=== PATIENT | male | born 1965 | race Caucasian/White ===

== ENCOUNTER → 2017-11-28 | Outpatient (CLI) | payer MEDICARE, MEDICAID ==
[~2017-11-28] MED LIST: AMARYL4 MG PO; AMOXICILLIN875 MG PO; ANTIANXIETY PO; AURALGAN EAR DR14 ML OTIC; BAYER CHEWABLE81 MG PO; BIOFREEZE118 ML TP; CELEXA20 MG PO; CLARITIN10 M2 PO; CLARITIN10 MG PO; EFFEXOR PO; EFFEXOR75 MG PO; FELDENE20 MG PO; FENTANYL PA25 MCG/HR TRANSDERM; FENTANYL PA50 MCG/HR TRANSDERM; FLEXERIL PO; GLUCOTROL5 MG PO; HUMALOG100 UNIT/1 SUBQ; HYDROCODON-ACE1 EAC7 PO; HYDROCODON-ACE1 EAC8 PO; HYDROCODONE; JANUVIA25 MG PO; KEFLEX; LEVEMIR SUBQ; LIDODERM 5%1 PATCH TOP; LISINOPRIL20 MG PO; METFORMIN HCL500 MG PO; METFORMIN PO; MORPHINE PO; NEURONTIN 300300 M1 PO; NOVOLOG100 UNIT/1 SUBQ; NUCYNTA ER100 MG; NUCYNTA ER100 MG PO; NUCYNTA ER150 MG PO; NUCYNTA ER200 MG PO; NUCYNTA ER250 MG PO; NUCYNTA ER50 MG PO; NUCYNTA100 MG PO; NUCYNTA50 MG; NUCYNTA50 MG PO; PERCOCET 5-3251 EACH PO; PRINIVIL20 MG PO; REQUIP 0.25 M0.25 MG PO; ROBAXIN 750 MG750 M1 PO; SIMVASTATIN40 MG PO; SINGULAIR 10 MG10 M1 PO; TESSALON200 MG PO; TOPAMAX 25 MG T25 M1 PO; TOPAMAX50 MG PO; TOPICAL ANALGESIC; TOPICAL PAIN CREAM; TOUJEO SOL300 UNIT/1 SUBQ; ULTRAM 50MG TAB50 MG PO; VICODIN PO
== END ==
LOC: M.RAD 10:57
DX: S97.82XA Crushing injury of left foot, initial encounter (principal); E78.5 Hyperlipidemia, unspecified; I10 Essential (primary) hypertension; X58.XXXA Exposure to other specified factors, initial encounter; Y93.89 Activity, other specified; Y92.89 Other specified places as the place of occurrence of the external cause; Y99.8 Other external cause status

== ENCOUNTER 2018-01-05 06:17 | Emergency (ER) | payer MEDICARE, MEDICAID ==
[~2018-01-05] VITALS: Ht 165.1 cm; Wt 97.1 kg
[2018-01-05 06:26] VITALS: BP 146/79
[2018-01-05] MEDS ORDERED: PREDNISONE 20 M20 M1 PO (06:26)
[2018-01-05] MEDS ORDERED: VICTOZA0.6 MG/0.1 SUBQ (06:32)
[2018-01-05] MEDS ORDERED: [UNRECOGNIZED DRUG - OTHER] PO (06:34)
[2018-01-05] MEDS ORDERED: TRESIBA FL100 UNIT/1 SUBQ (06:36)
== END 2018-01-05 06:41 | disposition home or self-care (01) ==
LOC: M.ERS 06:17
DX: L29.9 Pruritus, unspecified (principal); I10 Essential (primary) hypertension; E78.5 Hyperlipidemia, unspecified; F31.9 Bipolar disorder, unspecified; F90.9 Attention-deficit hyperactivity disorder, unspecified type; G25.81 Restless legs syndrome; M17.12 Unilateral primary osteoarthritis, left knee

== ENCOUNTER → 2018-02-27 | Outpatient (CLI) | payer MEDICARE, MEDICAID ==
[~2018-02-27] MED LIST changes: +PREDNISONE 20 M20 M1 PO; +TRESIBA FL100 UNIT/1 SUBQ; +VICTOZA0.6 MG/0.1 SUBQ; +[UNRECOGNIZED DRUG - OTHER] PO
== END ==
LOC: M.ULTRA 09:37
DX: M71.22 Synovial cyst of popliteal space [Baker], left knee (principal); M79.604 Pain in right leg; Z68.41 Body mass index [BMI] 40.0-44.9, adult

== ENCOUNTER → 2018-12-03 | Outpatient (CLI) | payer MEDICARE ==
--- NOTE | 2018-12-03 17:36 | EXE ---
[place] [address] STRESS ECHOCARDIOGRAM Name: DARIENKATINA LICEA Room: [facility]#: [id number] Admission: 12/03/18 Attend Phys: Luis Man, Discharge: Date of : 61 Date of Service: 12/03/18 1735 Report #: [id number] THIS REPORT FOR: //name// APPROVED REPORT Study performed: 12/03/2018 15:07:54 Exam: Stress Echocardiogram Indication: Chest pain , Dyspnea , Increased Fatigue Patient Location: Out-Patient Stress Nurse: María Thomason RN Supervising Physician: Juan Jose Chaudhari MD Ht: 5 ft 5 in HR: 56 bpm BP: 118/70 mmHg Medical History Cardiac Risk Factors: FHX of CAD, DM, Hyperlipidemia, HTN, Tobacco History (Former) Procedure The patient underwent an Exercise Stress Test using the Crow Protocol. Blood pressure, heart rate, and EKG were monitored. An Echocardiogram was performed by medical technician in four stages in quad fashion. At peak stress, four selected images were obtained and placed side by side with resting images for comparison. Stress Test Details Stress Test: Exercise stress testing was performed using a Crow protocol. HR Resting HR: 56 bpm Max Heart Rate (APMHR): 165 bpm Max HR Achieved: 136 bpm Target HR (85% APMHR): 140 bpm % of APMHR: 82 Recovery HR: 74 bpm HR response to stress: Normal HR response to stress BP Resting BP: 118/70 mmHg Max BP: 182/104 mmHg Recovery BP: 161/92 mmHg BP response to stress: Normal blood pressure response to stress. ECG Resting ECG: [place] [address] STRESS ECHOCARDIOGRAM Name: KATINA LEDEZMA Room: [facility]#: [id number] Admission: 12/03/18 Attend Phys: Luis Man, Discharge: Date of : 61 Date of Service: 12/03/18 1735 Report #: [id number] Stress ECG: Sinus Tachycardia ST Change: NONE Arrhythmia: None Recovery ECG: Sinus Rhythm Recovery ST Change: NONE Recovery Arrhythmia: None Clinical Reason for Termination: Fatigue and Dyspnea Exercise duration: 7 min 16 sec Highest Stage Achieved: Stage 3: 3.4 mph at 14% grade. Exercise capacity: 7.37 METs The patient had no significant cardiac symptoms with standard Crow protocol exercise. Exercise tolerance was somewhat reduced. Patient did not achieve target heart rate and was only able to be 82% of maximum predicted heart rate. Exercise was terminated due to dyspnea and fatigue. Stress ECG Conclusion The baseline 12-lead EKG shows sinus rhythm without significant ST or T wave abnormality. EKGs obtained during and post exercise stress show sinus rhythm and sinus tachycardia with no significant ST or T wave changes when compared to baseline. There were no stress-induced arrhythmias. Pre-Stress Echo The resting Echocardiogram showed normal left ventricular contractility with an estimated Ejection Fraction of about 55-60%. Post-Stress Echo The stress Echocardiogram showed normal left ventricular contractility with an estimated Ejection Fraction of about 65-70%. Normal augmentation of wall motion in all segments on post stress images. Clinical No clinical or ECG evidence for ischemia. Conclusion Clinical Response: Non-ischemic Exercise Capacity: Below Average Stress ECG Response: Non-ischemic Stress Echo Images: Non-ischemic The left ventricle is normal in size and wall thickness in both the rest [place] [address] STRESS ECHOCARDIOGRAM Name: KATINA LEDEZMA Room: [facility]#: [id number] Admission: 12/03/18 Attend Phys: Luis Man, Discharge: Date of : 61 Date of Service: 12/03/18 1735 Report #: [id number] The stress test is nondiagnostic due to failure to achieve target heart rate. Consider alternative mode of stress if further stress testing indicated. Other Information Study Quality: Fair <Conclusion> The left ventricle is normal in size and wall thickness in both the rest and stress images. The stress test is nondiagnostic due to failure to achieve target heart rate. Consider alternative mode of stress if further stress testing indicated. <ELECTRONICALLY SIGNED> By: Juan Jose Chaudhari MD, FACC 12/03/18 1735 1735 Juan Jose Chaudhari MD, FACC /INF
== END ==
LOC: M.CRD 10:00
DX: E11.42 Type 2 diabetes mellitus with diabetic polyneuropathy (principal); E78.5 Hyperlipidemia, unspecified; E66.9 Obesity, unspecified; I10 Essential (primary) hypertension; Z79.4 Long term (current) use of insulin